=== PATIENT | female | born 2000 | race African-American/Black ===

== ENCOUNTER 2024-04-26 16:05 | Emergency (ER) | payer OTHER ==
[~2024-04-26] VITALS: Ht 172.7 cm; Wt 74.3 kg
[2024-04-26 16:08] VITALS: TEMP 98.3
[2024-04-26] MEDS ORDERED: PRENTAB45 PO (16:13)
[2024-04-26 16:51] LABS: KETONE, URINE AUTO RFX NEGATIVE (NEGATIVE); LEUKOCYTE ESTERASE UR AUTO RFX NEGATIVE (NEGATIVE); NITRITE, URINE AUTO RFX NEGATIVE (NEGATIVE); RBC, URINE AUTO RFX 0 /HPF (0-3); SQUAM EPITHELIAL CELL UR AURFX 2 /HPF (0-6); WBC, URINE AUTO RFX 1 /HPF (0-3)
[2024-04-26 16:55] LABS: BASO # 0.1 10^3/uL (0.0-0.2); BASO % 0.5 % (0.0-1.0); EOS # 0.2 10^3/uL (0.0-0.5); EOS % 1.9 % (0.0-3.0); HEMATOCRIT 38.6 % (36.0-47.0); HEMOGLOBIN 13.2 g/dl (12.0-15.5); LYMPH # 2.9 10^3/uL (1.5-5.0); LYMPH % 31.3 % (24.0-44.0); MEAN CORPUSCULAR HEMOGLOBIN 30.3 pg (27.0-33.0); MEAN CORPUSCULAR HGB CONC 34.2 g/dl (32.0-36.5); MEAN CORPUSCULAR VOLUME 88.5 fl (80.0-96.0); MONO # 0.7 10^3/uL (0.0-0.8); MONO % 8.1 % (2.0-8.0); NEUTROPHILS # 5.3 10^3/uL (1.5-8.5); NEUTROPHILS % 57.8 % (36.0-66.0); PLATELET COUNT, AUTOMATED 244 10^3/uL (150-450); RED BLOOD COUNT 4.36 10^6/uL (4.00-5.40); WHITE BLOOD COUNT 9.1 10^3/uL (4.0-10.0)
[2024-04-26 17:24] LABS: LIPASE 49 U/L (12-53)
[2024-04-26 17:26] LABS: ALBUMIN 3.7 G/DL (3.2-5.2); ALKALINE PHOSPHATASE 79 U/L (35-104); ALT/SGPT 13 U/L (7.0-40); AST/SGOT 14 U/L (<34); BILIRUBIN,DIRECT 0.1 MG/DL (<0.4); BILIRUBIN,TOTAL 0.4 MG/DL (0.3-1.2); BLOOD UREA NITROGEN 11 MG/DL (9-23); CARBON DIOXIDE LEVEL 28 MMOL/L (20-31); CHLORIDE LEVEL 107 MMOL/L (98-107); CREATININE FOR GFR 0.71 MG/DL (0.55-1.30); GLOMERULAR FILTRATION RATE > 60.0 (>60); GLUCOSE, FASTING 95 MG/DL (60-100); POTASSIUM SERUM 4.5 MMOL/L (3.5-5.1); SODIUM LEVEL 142 MMOL/L (136-145); TOTAL PROTEIN 7.4 G/DL (5.7-8.2)
[2024-04-26 17:54] LABS: HCG, SERUM QUALITATIVE NEGATIVE (NEGATIVE)
[2024-04-26 19:24] LABS: Trichomonas vaginalis (AMP) NOT DETECTED (NEGATIVE)
[2024-04-26 19:44] VITALS: BP 130/64; O2SAT 100
[2024-04-26] MEDS: MAGNESIUM CITRATE 300ML BTL PO ONE (20:33)
[2024-04-26 20:48] LABS: GC DNA AMPLIFICATION NEGATIVE (NEGATIVE)
== END 2024-04-26 20:38 | disposition home or self-care (01) ==
LOC: M ED 16:05
DX: K59.00 Constipation, unspecified (principal); Z88.1 Allergy status to other antibiotic agents

== ENCOUNTER 2024-06-17 09:45 | Emergency (ER) | payer OTHER ==
[~2024-06-17] VITALS: Ht 172.7 cm; Wt 78.3 kg
[~2024-06-17 09:45] MED LIST: PRENTAB45 PO
[2024-06-17] MEDS: ASPIRIN 81MG CHEW TABLET PO ONE (11:39)
[2024-06-17 11:44] LABS: BASO % 0.6 % (0.0-1.0); EOS # 0.1 10^3/uL (0.0-0.5); EOS % 1.1 % (0.0-3.0); HEMATOCRIT 36.5 % (36.0-47.0); HEMOGLOBIN 12.7 g/dl (12.0-15.5); LYMPH # 1.9 10^3/uL (1.5-5.0); LYMPH % 26.4 % (24.0-44.0); MEAN CORPUSCULAR HEMOGLOBIN 30.6 pg (27.0-33.0); MEAN CORPUSCULAR HGB CONC 34.8 g/dl (32.0-36.5); MONO # 0.6 10^3/uL (0.0-0.8); MONO % 7.6 % (2.0-8.0); NEUTROPHILS # 4.6 10^3/uL (1.5-8.5); NEUTROPHILS % 63.7 % (36.0-66.0); PLATELET COUNT, AUTOMATED 243 10^3/uL (150-450); RED BLOOD COUNT 4.15 10^6/uL (4.00-5.40); WHITE BLOOD COUNT 7.2 10^3/uL (4.0-10.0)
[2024-06-17 12:10] LABS: CK-MB VALUE MASS < 1.0 NG/ML (<3.6)
[2024-06-17 12:18] LABS: CPK CREATINE PHOSPHOKINASE 65 U/L (34-145); MB/CK RELATIVE INDEX 1.53 (< OR =4)
[2024-06-17 12:41] VITALS: BP 114/66; TEMP 97.3; O2SAT 99
== END 2024-06-17 12:53 ==
LOC: M ED 09:45
DX: R07.89 Other chest pain (principal); Z88.1 Allergy status to other antibiotic agents

== ENCOUNTER 2024-12-01 06:59 | Emergency (ER) | payer OTHER ==
[~2024-12-01] VITALS: Ht 172.7 cm; Wt 77.2 kg
[~2024-12-01 06:59] MED LIST changes: +COLA100C5 PO; +MIRA3350 PO
[2024-12-01 07:02] VITALS: TEMP 97.5
[2024-12-01] MEDS ORDERED: ONDA-83 PO (08:33)
[2024-12-01] MEDS ORDERED: ERGO500029 PO (08:33)
[2024-12-01] MEDS ORDERED: HOME MED LIST COMPLETE! XX SCH (08:35)
[2024-12-01 08:40] VITALS: BP 110/63
[2024-12-01 08:50] LABS: KETONE, URINE AUTO RFX NEGATIVE (NEGATIVE); LEUKOCYTE ESTERASE UR AUTO RFX NEGATIVE (NEGATIVE); NITRITE, URINE AUTO RFX NEGATIVE (NEGATIVE); RBC, URINE AUTO RFX 2 /HPF (0-3); SQUAM EPITHELIAL CELL UR AURFX 2 /HPF (0-6); WBC, URINE AUTO RFX 1 /HPF (0-3)
[2024-12-01 08:55] VITALS: O2SAT 100
[2024-12-01 09:01] LABS: URINE PREG TEST NEGATIVE (NEGATIVE)
[2024-12-01] MEDS ORDERED: FLUC150T9 PO (09:12)
[2024-12-01] MEDS ORDERED: CLEO2CRE PV (09:12)
[2024-12-01 10:12] LABS: Trichomonas vaginalis (AMP) NOT DETECTED (NEGATIVE)
[2024-12-01 10:37] LABS: GC DNA AMPLIFICATION NEGATIVE (NEGATIVE)
== END 2024-12-01 09:18 | disposition home or self-care (01) ==
LOC: M ED 08:26
DX: B37.31 Acute candidiasis of vulva and vagina (principal); Z88.1 Allergy status to other antibiotic agents

== ENCOUNTER 2025-02-01 06:43 | Emergency (ER) | payer OTHER ==
[~2025-02-01] VITALS: Ht 172.7 cm; Wt 79.1 kg
[~2025-02-01 06:43] MED LIST changes: +CLEO2CRE PV; +ERGO500029 PO; +FLUC150T9 PO; +ONDA-83 PO
[2025-02-01 07:18] LABS: BASO # 0.1 10^3/uL (0.0-0.2); BASO % 0.6 % (0.0-1.0); EOS # 0.1 10^3/uL (0.0-0.5); EOS % 1.3 % (0.0-3.0); LYMPH # 2.5 10^3/uL (1.5-5.0); LYMPH % 28.0 % (24.0-44.0); MONO # 0.6 10^3/uL (0.0-0.8); MONO % 6.5 % (2.0-8.0); NEUTROPHILS # 5.8 10^3/uL (1.5-8.5); NEUTROPHILS % 63.4 % (36.0-66.0); PLATELET COUNT, AUTOMATED 239 10^3/uL (150-450)
[2025-02-01 07:45] LABS: ALT/SGPT 14 U/L (7.0-40); AST/SGOT 22 U/L (<34); CALCIUM LEVEL 8.8 MG/DL (8.5-10.1); CARBON DIOXIDE LEVEL 26 MMOL/L (20-31); CHLORIDE LEVEL 107 MMOL/L (98-107); CREATININE FOR GFR 0.73 MG/DL (0.55-1.30); GLOMERULAR FILTRATION RATE > 90.0 (>60); POTASSIUM SERUM 4.2 MMOL/L (3.5-5.1); SODIUM LEVEL 143 MMOL/L (136-145)
[2025-02-01 07:49] LABS: HCG, SERUM QUALITATIVE POSITIVE (NEGATIVE)
[2025-02-01 08:17] LABS: HCG, SERUM QUANTITATIVE 21.8 MIU/ML (<4.2)
[2025-02-01 09:05] VITALS: BP 121/82; TEMP 98.1; O2SAT 100
== END 2025-02-01 09:09 | disposition home or self-care (01) ==
LOC: M ED 06:43
DX: R19.7 Diarrhea, unspecified (principal); Z32.01 Encounter for pregnancy test, result positive; Z79.899 Other long term (current) drug therapy; Z88.1 Allergy status to other antibiotic agents

== ENCOUNTER 2025-02-05 10:09 | Emergency (ER) | payer OTHER ==
[~2025-02-05] VITALS: Ht 172.7 cm; Wt 78.6 kg
[2025-02-05] MEDS ORDERED: PNV1TABL16 PO (10:23)
[2025-02-05 11:00] LABS: KETONE, URINE AUTO RFX NEGATIVE (NEGATIVE); LEUKOCYTE ESTERASE UR AUTO RFX NEGATIVE (NEGATIVE); NITRITE, URINE AUTO RFX NEGATIVE (NEGATIVE); RBC, URINE AUTO RFX 23 /HPF (0-3); SQUAM EPITHELIAL CELL UR AURFX 1 /HPF (0-6); WBC, URINE AUTO RFX 1 /HPF (0-3)
[2025-02-05 11:21] LABS: BASO # 0.0 10^3/uL (0.0-0.2); BASO % 0.5 % (0.0-1.0); EOS # 0.1 10^3/uL (0.0-0.5); EOS % 1.6 % (0.0-3.0); LYMPH # 1.9 10^3/uL (1.5-5.0); LYMPH % 24.4 % (24.0-44.0); MONO # 0.7 10^3/uL (0.0-0.8); MONO % 8.8 % (2.0-8.0); NEUTROPHILS # 5.0 10^3/uL (1.5-8.5); NEUTROPHILS % 64.4 % (36.0-66.0); PLATELET COUNT, AUTOMATED 242 10^3/uL (150-450)
[2025-02-05 11:45] LABS: CALCIUM LEVEL 9.1 MG/DL (8.5-10.1); CARBON DIOXIDE LEVEL 28 MMOL/L (20-31); CHLORIDE LEVEL 105 MMOL/L (98-107); CREATININE FOR GFR 0.73 MG/DL (0.55-1.30); GLOMERULAR FILTRATION RATE > 90.0 (>60); HCG, SERUM QUANTITATIVE 35.7 MIU/ML (<4.2); POTASSIUM SERUM 4.6 MMOL/L (3.5-5.1); SODIUM LEVEL 140 MMOL/L (136-145)
[2025-02-05 14:08] VITALS: BP 121/75; TEMP 96.5; O2SAT 98
== END 2025-02-05 15:24 | disposition home or self-care (01) ==
LOC: M ED 10:09
DX: O20.0 Threatened abortion (principal); Z88.1 Allergy status to other antibiotic agents

== ENCOUNTER 2025-02-10 20:11 | Emergency (ER) | payer OTHER ==
[~2025-02-10] VITALS: Ht 172.7 cm; Wt 79.7 kg
[~2025-02-10 20:11] MED LIST changes: +PNV1TABL16 PO
[2025-02-10 20:14] VITALS: BP 123/73; TEMP 98.9; O2SAT 99
== END 2025-02-11 00:26 | disposition left against medical advice (07) ==
LOC: M ED 20:11
DX: Z53.21 Procedure and treatment not carried out due to patient leaving prior to being seen by health care provider (principal)